=== PATIENT | male | born 1935 | race African-American/Black ===

== ENCOUNTER 2018-04-12 11:09 | Emergency (ER) | payer MEDICARE, OTHER ==
[~2018-04-12] VITALS: Ht 165.1 cm; Wt 100.0 kg
[~2018-04-12 11:09] MED LIST: CALC250 PO; ENAL10TA7 PO; FERR324T4 PO; HYDR-3580 PO; MVI PO; PRED20 PO; TAMS5CAP PO; TEMA7.5 PO
[2018-04-12 11:26] VITALS: BP 92/55; PULSE 78; RESP 18; TEMP 97.5; O2SAT 95
[2018-04-12 12:04] VITALS: RESP 18; O2SAT 98
--- NOTE | 2018-04-12 12:10 | PD ---
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 Patient states he was trying to get out of bed into his wheelchair when he slipped on the floor. According to the paramedics, the family and patient call EMS multiple times to assist with his care. His told paramedics that she is unable to care for him now because of his severe weakness and wishes to look for possible penitentiary facilities. The patient reports shortness of breath and generalized weakness. He states that he has not been eating and drinking well. He also reports his urine output has been less than normal. There is no reported fevers, chills. There is no reported cough. He does complain of left thumb and hand pain. PFSH Past Medical History Anxiety: No Depression: No Cardiovascular Problems: Yes Chemotherapy: No Diabetes: No Diminished Hearing: No Endocrine: No Gastrointestinal Disorders: Yes (ileus post sx) Genitourinary: Yes (retention) Hypertension: Yes Immune Disorder: No Musculoskeletal: No Neurologic: No Psychiatric: No Reproductive: No Respiratory: Yes (nonproductive cough) Immunizations Current: No Radiation Therapy: No Sickle Cell Disease: No Thyroid Disease: No ?: Not Past Surgical History Abdominal Surgery: No Cardiac Surgery: No Ear Surgery: No Endocrine Surgery: No Eye Surgery: No Genitourinary Surgery: Yes (henia repair) Gynecologic Surgery: No Joint Replacement: Yes (left hip) Oral Surgery: No Pacemaker: No Thoracic Surgery: No Social History Alcohol Use: No Tobacco Use: No (QUIT 2 MONTHS AGO) Substance Use: No Allergies-Medications (Allergen,Severity, Reaction): Coded Allergies: No Known Allergies (Unverified , 09/27/14) Reported Meds & Prescriptions Reported Meds & Active Scripts Active Macrobid (Nitrofurantoin Monohydrate Macrocrystals) 100 Mg Capsule 100 Mg PO DAILY Deltasone (Prednisone) 20 Mg Tab 60 Mg PO DAILY 4 Days Oscal-D 250 MG /125 UNITS Tab (Calcium/Vitamin D) 250 Mg Tab 250 Mg PO Q12 Ferrous Sulfate 325 Mg Tab 325 Mg PO BID@12,17 Theragran (Multivitamins) 1 Tab Tab 1 Tab PO DAILY Temazepam 7.5 Mg Cap 7.5 Mg PO HS PRN Flomax (Tamsulosin Hcl) 0.4 Mg Cap 0.4 Mg PO DAILY Hydrocodone/Acetaminophen 7.5 mg/325 mg 1 Tab Tab 1 Tab PO Q4H PRN Reported Enalapril Maleate/Hydroch (Enalapril Maleate & Hydrochlor) 1 Tab Tab 1 Tab PO DAILY Review of Systems Except as stated in HPI: all other systems reviewed are Neg General / Constitutional: No: Fever, Chills Eyes: No: Blurred Vision HENT: No: Headaches, Neck Pain Cardiovascular: No: Chest Pain or Discomfort, Palpitations Respiratory: Positive: Shortness of Breath, No: Cough Gastrointestinal: No: Nausea, Vomiting, Diarrhea Genitourinary: Positive: Decreased Urinary Output, No: Dysuria Musculoskeletal: Positive: Limited ROM (Bilateral lower extremities which is not new. This stems from knee surgery and arthritis.), No: Weakness, Pain Skin: No Rash, No Lesions Neurologic: Positive: Weakness, No: Headache Physical Exam Narrative GENERAL: Elderly ill and weak appearing male in no acute respiratory distress. SKIN: Focused skin assessment warm/dry. Mild skin tenting HEAD: Atraumatic. Normocephalic. EYES: Pupils equal and round. No scleral icterus. No injection or drainage. ENT: No nasal bleeding or discharge. Mucous membranes pink and dry. NECK: Trachea midline. Supple. CARDIOVASCULAR: Regular rate and rhythm. No murmur appreciated. RESPIRATORY: No accessory muscle use. Clear to auscultation. Breath sounds equal bilaterally. Decreased respiratory effort. GASTROINTESTINAL: Abdomen soft, non-tender, nondistended. MUSCULOSKELETAL: No obvious deformities. No clubbing. No cyanosis. No edema. NEUROLOGICAL: Awake and alert. No obvious cranial nerve deficits. Normal speech. Data Data Last Documented VS Vital Signs Date Time Temp Pulse Resp B/P (MAP) Pulse Ox O2 Delivery O2 Flow Rate FiO2 04/12/18 14:30 74 18 142/61 (88) 97 Room Air 04/12/18 11:26 97.5 Orders Orders Complete Blood Count With Diff (04/12/18 11:41) Comprehensive Metabolic Panel (04/12/18 11:41) Urinalysis - C+S If Indicated (04/12/18 11:41) Thyroid Stimulating Hormone (04/12/18 11:41) Chest, Single Ap (04/12/18 11:41) Iv Access Insert/Monitor (04/12/18 11:41) Ecg Monitoring (04/12/18 11:41) Oximetry (04/12/18 11:41) Sodium Chlor 0.9% 1000 Ml Inj (Ns 1000 M (04/12/18 11:45) Sodium Chlorid 0.9% 500 Ml Inj (Ns 500 M (04/12/18 11:45) Finger ([id number]) (04/12/18 11:41) Hand, Limited (2vws) (04/12/18 11:41) Urine Culture (04/12/18 12:16) [facility] Request For Service (04/12/18 14:40) Labs Laboratory Tests Test 04/12/18 12:01 04/12/18 12:16 White Blood Count 7.7 TH/MM3 Red Blood Count 4.00 MIL/MM3 Hemoglobin 14.0 GM/DL Hematocrit 41.6 % Mean Corpuscular Volume 104.0 FL Mean Corpuscular Hemoglobin 35.0 PG Mean Corpuscular Hemoglobin Concent 33.6 % Red Cell Distribution Width 15.8 % Platelet Count 268 TH/MM3 Mean Platelet Volume 7.5 FL Neutrophils (%) (Auto) 61.1 % Lymphocytes (%) (Auto) 22.9 % Monocytes (%) (Auto) 12.5 % Eosinophils (%) (Auto) 2.9 % Basophils (%) (Auto) 0.6 % Neutrophils # (Auto) 4.7 TH/MM3 Lymphocytes # (Auto) 1.8 TH/MM3 Monocytes # (Auto) 1.0 TH/MM3 Eosinophils # (Auto) 0.2 TH/MM3 Basophils # (Auto) 0.0 TH/MM3 CBC Comment DIFF FINAL Differential Comment Blood Urea Nitrogen 13 MG/DL Creatinine 0.76 MG/DL Random Glucose 104 MG/DL Total Protein 6.4 GM/DL Albumin 2.6 GM/DL Calcium Level 8.4 MG/DL Alkaline Phosphatase 92 U/L Aspartate Amino Transf (AST/SGOT) 17 U/L Alanine Aminotransferase (ALT/SGPT) 11 U/L Total Bilirubin 0.4 MG/DL Sodium Level 136 MEQ/L Potassium Level 3.8 MEQ/L Chloride Level 96 MEQ/L Carbon Dioxide Level 28.3 MEQ/L Anion Gap 12 MEQ/L Estimat Glomerular Filtration Rate 119 ML/MIN Thyroid Stimulating Hormone 3rd Gen 1.140 uIU/ML Urine Color YELLOW Urine Turbidity HAZY Urine pH 7.0 Urine Specific Jackson 1.017 Urine Protein 30 mg/dL Urine Glucose (UA) NEG mg/dL Urine Ketones NEG mg/dL Urine Occult Blood SMALL Urine Nitrite POS Urine Bilirubin NEG Urine Urobilinogen 2.0 MG/DL Urine Leukocyte Esterase SMALL Urine RBC 1 /hpf Urine WBC 7 /hpf Urine Transitional Epithelial Cells <1 /hpf Urine Bacteria RARE /hpf Microscopic Urinalysis Comment CULTURE INDICATED MDM Medical Decision Making Medical Screen Exam Complete: Yes Emergency Medical Condition: Yes Differential Diagnosis Dehydration versus metabolic derangement versus UTI versus pneumonia Narrative Course 82-year-old male presents from home complaining of weakness. Patient also complained of left thumb pain. Patient's laboratory tests are within normal limits. Patient has a mild UTI. Patient does have a fracture of his left proximal thumb. He has been placed in a thumb spica splint. He will be given a prescription for Macrobid. There will be a home health consult placed for possible assistance at home. Case management has spoken with the and she is amenable to this plan. Diagnosis Primary Impression: Urinary tract infection Additional Impressions: Fracture of proximal phalanx of left thumb Wheelchair bound Referrals: Kamran Juan MD Med/Other Pt SpecificInfo: Prescription(s) given Scripts Nitrofurantoin Monohydrate Macrocrystals (Macrobid) 100 Mg Capsule 100 MG PO DAILY for Infection, #14 CAP 0 Refills Prov: Tung Shelby MD 04/12/18 Disposition: 01 DISCHARGE HOME Condition: Stable Tung Shelby MD April 12, 2018 12:10
[2018-04-12] MEDS: SODIUM CHLORID 0.9% 500 ML INJ 500 ML IV ONE (12:23)
[2018-04-12 12:24] VITALS: BP 130/64; PULSE 67; RESP 18; O2SAT 96
[2018-04-12] MEDS: SODIUM CHLOR 0.9% 1000 ML INJ 1,000 ML IV SCH (12:24)
[2018-04-12 12:26] LABS: AUTOMATED NEUTROPHIL # 4.7 TH/MM3 (1.8-7.7); BASOPHIL % 0.6 % (0.0-2.0); EOSINOPHIL # 0.2 TH/MM3 (0-0.4); EOSINOPHIL % 2.9 % (0.0-4.0); HEMATOCRIT 41.6 % (39.0-51.0); LYMPH % 22.9 % (9.0-44.0); LYMPHOCYTE # 1.8 TH/MM3 (1.0-4.8); MEAN CORPUSCULAR HGB CONC 33.6 % (32.0-36.0); MEAN PLATELET VOLUME 7.5 FL (7.0-11.0); MONO % 12.5 % (0.0-8.0); NEUT % 61.1 % (16.0-70.0); PLATELET COUNT 268 TH/MM3 (150-450); RED CELL DISTRIBUTION WIDTH 15.8 % (11.6-17.2); WHITE BLOOD COUNT 7.7 TH/MM3 (4.0-11.0)
--- NOTE | 2018-04-12 12:30 | RADRPT ---
EXAM DATE/TIME: 04/12/2018 12:00 [facility] COMPARISON: CHEST SINGLE AP, September 27, 2014, 11:44. INDICATIONS : Short of breath, wheezing. MEDICAL HISTORY : Hypertension. SURGICAL HISTORY : None. ENCOUNTER: Initial ACUITY: 1 day PAIN SCORE: 0/10 LOCATION: Bilateral chest FINDINGS: A single view of the chest demonstrates the lungs to be symmetrically aerated without evidence of mas s, infiltrate or effusion. The cardiomediastinal contours are unremarkable. Osseous structures are intact. CONCLUSION: No acute disease. Kannan Bailey MD FACR on April 12, 2018 at 12:28 Board Certified Radiologist. This report was verified electronically.
--- NOTE | 2018-04-12 12:34 | RADRPT ---
EXAM DATE/TIME: 04/12/2018 12:04 [facility] COMPARISON: No previous studies available for comparison. INDICATIONS : Pain with bruising and swell base of thumg. MEDICAL HISTORY : Hypertension. SURGICAL HISTORY : None. ENCOUNTER: Initial ACUITY: 3 days PAIN SCORE: 9/10 LOCATION: Left hand. FINDINGS: Nondisplaced fracture base of the first metacarpal in reasonable alignment. Remainder the carpus is intact. Phalanges are intact. CONCLUSION: Fracture base of the first metacarpal as above Kannan Bailey MD FACR on April 12, 2018 at 12:31 Board Certified Radiologist. This report was verified electronically.
--- NOTE | 2018-04-12 12:35 | RADRPT ---
EXAM DATE/TIME: 04/12/2018 12:08 [facility] COMPARISON: No previous studies available for comparison. INDICATIONS : Pain, swelling and bruising base left thumb. MEDICAL HISTORY : Hypertension. SURGICAL HISTORY : None. ENCOUNTER: Initial ACUITY: 4 - 6 days PAIN SCORE: 10/10 LOCATION: Left thumb. FINDINGS: Fracture base of the first metacarpal in reasonable alignment. No other fractures seen. CONCLUSION: Fracture base of the first metacarpal as above Kannan Bailey MD FACR on April 12, 2018 at 12:32 Board Certified Radiologist. This report was verified electronically.
[2018-04-12 12:41] LABS: BACTERIA, URINE RARE /hpf; BILIRUBIN, URINE NEG (NEG); BLOOD, URINE SMALL (NEG); GLUCOSE,URINE NEG (NEG); KETONE, URINE NEG (NEG); NITRITE,URINE POS (NEG); TRANSITIONAL EPI CELLS, URINE <1 /hpf; URINE COLOR YELLOW (YELLW/STRAW); URINE LEUKOCYTE ESTERASE SMALL (NEG)
[2018-04-12 12:57] LABS: ALKALINE PHOSPHATASE 92 U/L (45-117); TOTAL BILIRUBIN ADULT 0.4 MG/DL (0.2-1.0); TOTAL PROTEIN 6.4 GM/DL (6.4-8.2)
[2018-04-12 13:00] LABS: ALBUMIN 2.6 GM/DL (3.4-5.0); ALT (GPT) 11 U/L (12-78); AST (GOT) 17 U/L (15-37); BICARBONATE 28.3 MEQ/L (21.0-32.0); BLOOD UREA NITROGEN 13 MG/DL (7-18); CALCIUM 8.4 MG/DL (8.5-10.1); CHLORIDE 96 MEQ/L (98-107); CREATININE 0.76 MG/DL (0.60-1.30); GLOMERULAR FILTRATION RATE 119 ML/MIN (>89); GLUCOSE,RANDOM 104 MG/DL (74-106); SODIUM (NA) 136 MEQ/L (136-145)
[2018-04-12 14:30] VITALS: BP 142/61; PULSE 74; RESP 18; O2SAT 97
[2018-04-12] MEDS ORDERED: MACR100C2 PO (15:36)
--- NOTE | 2018-04-12 16:33 | HHI.FF ---
Face to Face Verification Diagnosis: (1) UTI (urinary tract infection) (2) Impaired mobility and activities of daily living (3) Fall (4) Fracture of proximal phalanx of left thumb Physical Therapy Order: Improve ambulation, Strength and gait training Occupational Therapy Order: Evaluate and Treat, Improve ADL, Gross motor coordination Home Health Nursing Order: Nursing assessment with vital signs Home Health Aide Order: To Assist In: Bathing and personal care Electrical Instrument Technician Order: To Evaluate: Living conditions/environment, Support services Order: To Provide: Long range planning, Community services I have seen patient Jonnathan Sousa on 04/12/18. My clinical findings support the need for the requested home health care services because: Ltd mobility - disease progression Deconditioned w/ increased weakness Limited ability to care for self High risk of falls I certify that my clinical findings support that this patient is homebound because: Unsteady gait/balance [id number] bed/chair I attest that this patient is in need of the above requested evaluation and services. Tung Shelby MD April 12, 2018 16:33
== END 2018-04-12 19:12 | disposition home or self-care (01) ==
LOC: NEPE 11:09
DX: N39.0 Urinary tract infection, site not specified (principal); S62.515A Nondisplaced fracture of proximal phalanx of left thumb, initial encounter for closed fracture; W05.0XXA Fall from non-moving wheelchair, initial encounter; Y92.009 Unspecified place in unspecified non-institutional (private) residence as the place of occurrence of the external cause; Z99.3 Dependence on wheelchair
CPT/HCPCS: 71045; 73120; 73140; 80053; 81001; 84443; 85025; 87086; 96360; 99284; J7030; J7040; L3808